=== PATIENT | male | born 1945 | race Caucasian/White ===

== ENCOUNTER → 2021-07-17 | Outpatient (CLI) | payer MEDICARE, OTHER ==
--- NOTE | 2021-07-17 11:25 | RAD ---
AP and Lateral Views of the Chest 07/17/2021 9:18 AM Indication: Reason: PRODUCTIVE COUGH / Spl. Instructions: / History: Comparison: None available Findings: There is no focal consolidation or infiltrate identified. Heart size is normal.. There is n o evidence of pneumothorax or pleural effusion. No acute osseous abnormalities are identified. Degene rative changes of the thoracic spine noted. Impression: No evidence of acute cardiopulmonary process. Electronically signed by: Rush Mathis MD (07/17/2021 11:23 AM) [id number]
== END ==
LOC: RAD 09:07
PROVIDERS: ATTEND Family Medicine
DX: R05 Cough (principal); M47.814 Spondylosis without myelopathy or radiculopathy, thoracic region
CPT/HCPCS: 71046